=== PATIENT | male | born 1995 | race African-American/Black ===

== ENCOUNTER 2023-04-16 16:12 | Outpatient (CLI) | payer OTHER, SELFPAY ==
[2023-04-16 23:40] LABS: Chlamydia DNA Amplified* NOT DETECTED (No Detected); GC DNA Amplified* NOT DETECTED (No Detected)
== END 2023-04-16 16:13 | disposition home or self-care (01) ==
LOC: LKVREF 16:12
PROVIDERS: Visit Provider Physician Assistant
DX: Z11.3 Encounter for screening for infections with a predominantly sexual mode of transmission (principal)
CPT/HCPCS: 87491; 87591